=== PATIENT | female | born 1975 | race Hispanic/Latino ===

== ENCOUNTER 2023-01-07 07:30 | Day surgery (SDC) | payer OTHER ==
[~2023-01-07] VITALS: Ht 154.9 cm; Wt 72.0 kg
--- NOTE | ~2023-01-07 | OR ---
[facility] [address], [place] [address] Draft DATE OF OPERATION: 01/07/2023 SURGEON: Syl Burnett MD PREOPERATIVE DIAGNOSIS: Postmenopausal bleeding. POSTOPERATIVE DIAGNOSIS: Postmenopausal bleeding, atrophic endometrium. PROCEDURE: Hysteroscopy. ANESTHESIA: MAC. ESTIMATED BLOOD LOSS: Minimal. DRAINS: None. INDICATIONS AND FINDINGS: The patient is a 47-year-old female, 2, para 0, SAB 2, who has been menopausal for 2 years, who has had some recent abnormal bleeding. Ultrasound was done, which showed a thickened endometrial stripe. At the time of surgery, she had a small uterus with no adnexal masses. Cavity itself was completely atrophic. DESCRIPTION OF PROCEDURE: The patient was prepped and draped in the dorsal lithotomy position. A weighted speculum was placed. The anterior lip of the cervix was visualized and grasped with a single-tooth tenaculum. The cervix was initially quite stenotic. This was dilated with the smallest dilator and this was followed by dilation to an #8 dilator. The uterus was sounded to 7 cm. The MyoSure device was then placed. The cavity was evaluated and was completely atrophic. Because of this, no sampling was done. The procedure was terminated with removal of the instruments. The tenaculum was removed and there was no evidence of any ongoing bleeding from the site. All sponge and needle counts were correct. She was taken to the recovery room in good condition. PATIENT NAME: DOLORES SADLERSuzi WAITE OPERATIVE REPORT DATE OF : 71 REPORT #: [id number] PHYSICIAN: SYL BURNETT MD PCP: RAVI CROWDER MD REPORT IS CONFIDENTIAL AND NOT TO BE RELEASED WITHOUT AUTHORIZATION [address] [place], [place] [address] Draft MD LULA Marquez/CELSO /[id number] Copies: ~ PATIENT NAME: MACKENZIE SADLER OPERATIVE REPORT DATE OF : 71 REPORT #: [id number] PHYSICIAN: SYL BURNETT MD PCP: RAVI CROWDER MD REPORT IS CONFIDENTIAL AND NOT TO BE RELEASED WITHOUT AUTHORIZATION
[~2023-01-07 07:30] MED LIST: CARAFATE1 GM PO; CARBATROL200 MG PO; ESTRACE42.5 GM VAGINAL; LIPITOR20 MG; NEURONTIN300 MG PO; OMEPRAZOLE20 MG PO
--- NOTE | 2023-01-07 12:21 | NUR ---
01/07/23 1221 Marcela Lipscomb 1148 PT ARRIVED IN PACU AWAKE WITH NO C/O'S. 1200 SITTING UP IN BED SIPPING ON WATER. 1210 DC INSTRUCTIONS GIVEN. ALL QUESTIONS ANSWERED. 1215 TO DS TO WAIT FOR RIDE AT 1300.
== END 2023-01-07 12:15 | disposition home or self-care (01) ==
LOC: DS 07:30
PROVIDERS: ATTEND Obstetrics & Gynecology
PROC: 0UJD8ZZ Inspection of Uterus and Cervix, Via Natural or Artificial Opening Endoscopic (ICD-10-PCS; principal; 2023-01-07 09:45)
DX: N95.0 Postmenopausal bleeding (principal); N85.8 Other specified noninflammatory disorders of uterus; Z87.891 Personal history of nicotine dependence; Z88.0 Allergy status to penicillin; Z88.8 Allergy status to other drugs, medicaments and biological substances; Z91.040 Latex allergy status
CPT/HCPCS: J1100; J1885; J2250; J2405; J2704; J2765; J3010; J7121